=== PATIENT | female | born 1930 | race Caucasian/White ===

== ENCOUNTER 2017-04-30 06:31 | Emergency (ER) | payer MEDICARE, BC ==
[~2017-04-30] VITALS: Ht 149.9 cm; Wt 63.5 kg
[2017-04-30 06:33] VITALS: Ht 149.9 cm; Wt 63.5 kg
[2017-04-30] MEDS ORDERED: SOD CHLORIDE 0.9% 1,000 ML IV STA (06:40)
[2017-04-30] MEDS ORDERED: ONDANSETRON 4 MG INJ IV STA (06:40)
[2017-04-30] MEDS ORDERED: morphine 4 MG/ML VIAL IV STA (06:40)
[2017-04-30] MEDS ORDERED: KETOROLAC 30 MG INJ IV STA (07:00)
[2017-04-30 07:21] LABS: BASOPHIL # 0.1 10^3/ul (0.0-0.1); BASOPHILS % 0.8 % (0.0-2.0); EOSINOPHILS # 0.2 10^3/ul (0.0-0.5); EOSINOPHILS % 1.7 % (0.0-7.0); HEMATOCRIT 35.3 % (37.0-47.0); HEMOGLOBIN 11.6 g/dl (12.0-16.0); LYMPHOCYTES # 2.1 10^3/ul (0.8-2.9); LYMPHOCYTES % 21.5 % (15.0-51.0); MEAN CORPUSCULAR HEMOGLOBIN 29.5 pg (29.0-33.0); MEAN CORPUSCULAR HGB CONC 32.9 g/dl (32.0-37.0); MEAN CORPUSCULAR VOLUME 89.8 fl (82.0-101.0); MEAN PLATELET VOLUME 10.3 fl (7.4-10.4); MONOCYTE # 0.7 10^3/ul (0.3-0.9); NEUTROPHIL # 6.6 10^3/ul (1.6-7.5); NEUTROPHILS % 68.7 % (39.0-77.0); PLATELET COUNT 206 10^3/UL (140-415); RED BLOOD COUNT 3.93 10^6/ul (4.20-5.40); RED CELL DISTRIBUTION WIDTH 13.8 % (11.5-14.5); WHITE BLOOD COUNT 9.6 10^3/ul (4.8-10.8)
[2017-04-30 07:25] LABS: ADD UMIC YES; UR ASCORBIC ACID NEGATIVE (NEGATIVE); UR BACTERIA FEW /HPF (NONE SEEN); UR BILIRUBIN (Dip) NEGATIVE (NEGATIVE); UR BLOOD (Dip) 2+ mg/dL (NEGATIVE); UR CLARITY SLIGHTLY CLOUDY (CLEAR); UR COLOR YELLOW (YELLOW); UR GLUCOSE (Dip) NEGATIVE (NEGATIVE); UR KETONES (Dip) NEGATIVE (NEGATIVE); UR LEUKOCYTE ESTERASE (Dip) 2+ Leu/ul (NEGATIVE); UR NITRITE (Dip) NEGATIVE (NEGATIVE); UR RBC 16 /HPF (0-5); UR SQUAMOUS EPITHELIAL CELL FEW /HPF (FEW); UR TOTAL PROTEIN (Dip) NEGATIVE (NEGATIVE); UR UROBILINOGEN (Dip) NEGATIVE (NEGATIVE)
[2017-04-30 07:49] LABS: ALANINE AMINOTRANSFERASE 24 IU/L (13-69); ALBUMIN 3.8 g/dl (3.3-4.9); ALBUMIN/GLOBULIN RATIO 0.97; ALKALINE PHOSPHATASE 71 IU/L (42-121); ANION GAP 17 (8-16); ASPARTATE AMINO TRANSFERASE 23 IU/L (15-46); BILIRUBIN,INDIRECT 0.2 mg/dl (0-1.1); BILIRUBIN,TOTAL 0.2 mg/dl (0.2-1.3); BLOOD UREA NITROGEN 18 mg/dl (7-20); CALCIUM 9.4 mg/dl (8.4-10.2); CARBON DIOXIDE 22 mmol/L (21-31); CHLORIDE 111 mmol/L (97-110); CREATININE 1.69 mg/dl (0.44-1.00); GLUCOSE 115 mg/dl (70-220); POTASSIUM 3.8 mmol/L (3.5-5.1); SODIUM 146 mmol/L (135-144); TOTAL PROTEIN 7.7 g/dl (6.1-8.1)
[2017-04-30] MEDS ORDERED: ATOR40TA68 PO (07:52)
[2017-04-30] MEDS ORDERED: RALO60TA12 PO (07:52)
[2017-04-30] MEDS ORDERED: METO-319 PO (07:53)
[2017-04-30] MEDS ORDERED: NITROFURANTOIN (SR) 100 MG CAP PO ONE (08:00)
[2017-04-30 08:01] LABS: TROPONIN-I < 0.012 ng/ml (0.00-0.12)
[2017-04-30] MEDS ORDERED: HYDR-906 PO (08:36)
[2017-04-30] MEDS ORDERED: CEPH-443 PO (08:36)
[2017-04-30] MEDS ORDERED: DOCU-144 PO (08:36)
--- NOTE | 2017-04-30 08:42 | RADRPT ---
PROCEDURE: CT Abdomen and pelvis without contrast. CLINICAL INDICATION: Abdominal pain TECHNIQUE: CT scan of the abdomen and pelvis without contrast was performed on a multidetector hig h-resolution CT scan. . Coronal and sagittal reformatted images were obtained from the [facility] e images. Standard CT scan of the abdomen pelvis without contrast protocols were performed. The total exam CTDI equals 10.95 mGy and the total exam DLP equals 580.08 mGy-cm. One or more of the following dose reduction techniques were used: - Automated exposure control. - Adjustment of the mA and/or kV according to patient size. Use of iterative reconstruction technique. COMPARISON: None. FINDINGS: There is a 5 mm calcified calculus involving the proximal left ureter approximately 2 cm distal to t he left ureteropelvic junction with moderate left hydronephrosis. The remainder of the left ureter i s unremarkable. In the superior aspect of the right kidney are two small approximately 2 mm non-obst ructing calcified calculi. No evidence of right obstructive uropathy. There is a 1.6 cm pedunculated isodense mass involving the inferior right kidney but may represent a hemorrhagic cyst. Neoplasm c annot be excluded. Recommend follow-up MRI of the kidneys with without contrast for renal mass britni cols for further evaluation. No other intra renal masses bilaterally. The urinary bladder is unremar kable. Anteverted uterus otherwise unremarkable. No adnexal masses. There is a 1 cm calcified gallstone. The gallbladder is otherwise unremarkable. No evidence of bilia ry ductal dilation. Liver pancreas and adrenal glands are unremarkable. Spleen normal in size with a punctate calcificat ion consistent with old granulomatous disease. The spleen is otherwise unremarkable. Negative for intra-abdominal free air, free fluid, abscesses or lymphadenopathy. Status post previous partial colectomy. Diverticulosis of the distal descending and sigmoid colon bu t no CT evidence of diverticulitis. Remainder the colon is unremarkable. The stomach and small bowel are unremarkable. Atherosclerosis of the aorta and both iliac arteries. No evidence of aneurysm. Abdominal pelvic wall unremarkable. Mild scarring at the lung bases. Right hilar and mediastinal aditi cified lymph nodes. Coronary artery disease. There is extensive degenerative changes lower thoracic and lumbar spine without acute osseous findin gs are osteoblastic/osteolytic lesions. IMPRESSION: 1. 5 mm proximal left ureteral calcified calculus resulting in moderate left hydronephrosis. 2. Small nonobstructing bilateral renal calcified calculi. No evidence of right obstructive uropath y. 3. 1.6 cm pedunculated isodense mass involving the inferior right kidney may represent hemorrhagic cyst however malignancy cannot be excluded. Recommend follow-up MRI of the kidneys with without con trast for renal mass protocols for further evaluation. 4. 1 cm calcified gallstone. No biliary ductal dilation. 5. Status post partial colectomy. Diverticulosis of the descending and sigmoid colon without CT miguel dence of diverticulitis. RPTAT:AAJJ Physician [place] Date Time Electronically viewed and signed by Physician [place] on 04/30/2017 08:14 BM/
[2017-04-30 09:12] VITALS: BP 135/88; PULSE 71; RESP 18
--- NOTE | 2017-04-30 10:16 | ERD ---
ER Documentation Chief Complaint Chief Complaint abdominal pain since last night HPI Patient is an 86-year-old female with hypertension and pancreatitis who presents with abdominal pain. She said the abdominal pain started last night at 8 PM. The patient has no vomiting. She did have diarrhea yesterday. She has a history of colon resection 15 years ago. She has had pancreatitis in the past as well. Her pain is diffuse and radiates to her back. The pain is constant and sharp in nature. She has no fevers. She has had no treatment as of yet. She said that her primary doctor is Dr. Kathy Portillo. ROS All systems reviewed and are negative except as per history of present illness. Medications Home Meds Active Scripts Docusate Sodium* (Colace*) 100 Mg Capsule, 100 MG PO TID, #30 CAP Prov:DERREK JONES MD 04/30/17 Hydrocodone/Acetaminophen (Louisa 5-325 Tablet) 1 Each Tablet, 1 TAB PO Q6H Y for PAIN, #12 TAB Prov:DERREK JONES MD 04/30/17 Cephalexin* (Keflex*) 500 Mg Capsule, 500 MG PO QID for 7 Days, CAP Prov:DERREK JONES MD 04/30/17 Reported Medications Metoprolol Succinate* (Toprol XL*) 50 Mg Tab.er.24h, 50 MG PO DAILY, #30 TAB 04/30/17 Raloxifene Hcl* (Evista*) 60 Mg Tablet, 60 MG PO DAILY, TAB 04/30/17 Atorvastatin* (Atorvastatin*) 40 Mg Tablet, 40 MG PO QHS, #30 TAB 04/30/17 Allergies Allergies: Coded Allergies: Penicillins (Verified Allergy, Severe, 04/30/17) PMhx/Soc History of Surgery: Yes Anesthesia Reaction: No Hx Neurological Disorder: No Hx Alcohol Use: No Hx Substance Use: No Hx Tobacco Use: No Smoking Status: Never smoker FmHx Family History: No diabetes Physical Exam Vitals Vital Signs Date Time Temp Pulse Resp B/P Pulse Ox O2 Delivery O2 Flow Rate FiO2 04/30/17 09:12 71 18 135/88 97 Room Air 04/30/17 06:33 97.7 112 18 170/89 97 Physical Exam Const: Moderate distress secondary to abdominal pain Head: Atraumatic Eyes: Normal Conjunctiva ENT: Normal External Ears, Nose and Mouth. Neck: Full range of motion..~ No meningismus. Resp: Clear to auscultation bilaterally Cardio: Regular rate and rhythm, no murmurs Abd: Soft, non tender, non distended. Normal bowel sounds Skin: No petechiae or rashes Back: No midline or flank tenderness Ext: No cyanosis, or edema Neur: Awake and alert Psych: Normal Mood and Affect Result Diagram: 04/30/17 0704/30/17 0705 Results 24 hrs Laboratory Tests Test 04/30/17 07:05 White Blood Count 9.610^3/ul Red Blood Count 3.9310^6/ul Hemoglobin 11.6g/dl Hematocrit 35.3% Mean Corpuscular Volume 89.8fl Mean Corpuscular Hemoglobin 29.5pg Mean Corpuscular Hemoglobin Concent 32.9g/dl Red Cell Distribution Width 13.8% Platelet Count 68051^3/UL Mean Platelet Volume 10.3fl Neutrophils % 68.7% Lymphocytes % 21.5% Monocytes % 7.0% Eosinophils % 1.7% Basophils % 0.8% Nucleated Red Blood Cells % 0.0/100WBC Neutrophils # 6.610^3/ul Lymphocytes # 2.110^3/ul Monocytes # 0.710^3/ul Eosinophils # 0.210^3/ul Basophils # 0.110^3/ul Nucleated Red Blood Cells # 0.010^3/ul Urine Color YELLOW Urine Clarity SLIGHTLY CLOUDY Urine pH 5.0 Urine Specific [place] 1.010 Urine Ketones NEGATIVEmg/dL Urine Nitrite NEGATIVEmg/dL Urine Bilirubin NEGATIVEmg/dL Urine Urobilinogen NEGATIVEmg/dL Urine Leukocyte Esterase 2+Ky/ul Urine Microscopic RBC 16/HPF Urine Microscopic WBC 17/HPF Urine Squamous Epithelial Cells FEW/HPF Urine Bacteria FEW/HPF Urine Hemoglobin 2+mg/dL Urine Glucose NEGATIVEmg/dL Urine Total Protein NEGATIVEmg/dl Sodium Level 146mmol/L Potassium Level 3.8mmol/L Chloride Level 111mmol/L Carbon Dioxide Level 22mmol/L Anion Gap 17 Blood Urea Nitrogen 18mg/dl Creatinine 1.69mg/dl Glucose Level 115mg/dl Calcium Level 9.4mg/dl Total Bilirubin 0.2mg/dl Direct Bilirubin 0.00mg/dl Indirect Bilirubin 0.2mg/dl Aspartate Amino Transf (AST/SGOT) 23IU/L Alanine Aminotransferase (ALT/SGPT) 24IU/L Alkaline Phosphatase 71IU/L Troponin I < 0.012ng/ml Total Protein 7.7g/dl Albumin 3.8g/dl Globulin 3.90g/dl Albumin/Globulin Ratio 0.97 Lipase 23U/L Current Medications Medications (Trade) Dose Ordered Sig/Chrissy Route PRN Reason Start Time Stop Time Status Last Admin Dose Admin Sodium Chloride (NS) 1,000 ml @ 1,000 mls/hr Q1H STAT IV 04/30/17 06:40 04/30/17 07:39 DC 04/30/17 07:31 Morphine Sulfate (morphine) 4 mg ONCE STAT IV 04/30/17 06:40 04/30/17 07:01 DC Ondansetron HCl (Zofran Inj) 4 mg ONCE STAT IV 04/30/17 06:40 04/30/17 06:41 DC 04/30/17 07:31 Ketorolac Tromethamine (Toradol) 30 mg ONCE STAT IV 04/30/17 07:00 04/30/17 07:01 DC 04/30/17 07:31 Nitrofurantoin Macrocrystals (Macrobid) 100 mg ONCE ONCE PO 04/30/17 08:00 04/30/17 08:01 DC 04/30/17 07:59 Procedures/MDM EKG read by me: Rate/Rhythm: Regular rate and rhythm at a normal rate Intervals: Normal Impression: No evidence of ischemia or arrhythmia CT abdomen pelvis shows left-sided 5 mm kidney stone per radiology with mild hydronephrosis. Patient is an 86-year-old female presents with abdominal pain. She was found to have a 5 mm kidney stone with hydronephrosis. Her urinalysis does show infection and I did offer and recommend admission for IV antibiotics. However the patient is well-appearing with no fever and normal white blood cell count and the patient does not want to stay in the hospital. I believe a trial of outpatient management is appropriate as well. She has a penicillin allergy but says that she has had Keflex before and did not have a reaction. She says that she has had a reaction to Cipro. Therefore Will be given for a one-week course prior told her that she will need to follow-up with Dr. Bunn from urology within 24 hours for lithotripsy. She can return for any worsening symptoms. I believe outpatient management is reasonable at this time. I doubt appendicitis , pancreatitis, or bowel obstruction. Departure Diagnosis: Primary Impression: Cystitis Additional Impressions: Kidney stone Abdominal pain Abdominal location: unspecified location Qualified Code: R10.9 - Abdominal pain, unspecified abdominal location Condition: Fair Patient Instructions: Cystitis, Kidney Stone W/ Colic Referrals: ASHU BUNN MD Additional Instructions: SPECIALIST: YOU HAVE A MEDICAL CONDITION WHICH REQUIRES YOU TO SEE A SPECIALIST WITHIN THE NEXT 1-2 DAYS. PLEASE FOLLOW UP WITH YOUR PRIMARY PHYSICIAN FOR REFFERAL.IF YOU DO NOT HAVE A PRIMARY CARE PHYSICIAN AND/OR YOU CAN NOT AFFORD TO SEE A PHYSICIAN THE FOLLOWING RESOURCES HAVE BEEN SUPPLIED TO YOU. IT IS YOUR RESPONSIBILITY TO BE SEEN BY THE SPECIALIST DERREK JONES MD Apr 30, 2017 10:16
== END 2017-04-30 09:13 | disposition home or self-care (01) ==
LOC: E/R 06:31
DX: N30.90 Cystitis, unspecified without hematuria (principal); N20.0 Calculus of kidney; R00.2 Palpitations
CPT/HCPCS: 36415; 74176; 80053; 81001; 83690; 84484; 85025; 87086; 93005; 96374; 96375; 99285; J1885; J2405; J7030

== ENCOUNTER 2017-11-17 01:38 | Emergency (ER) | END 2017-11-17 04:34 | disposition home or self-care (01) ==